=== PATIENT | male | born 1965 | race Caucasian/White ===

== ENCOUNTER 2021-12-02 21:40 | Emergency (ER) | payer BC, SELFPAY ==
[2021-12-02] VITALS (8 sets, daily range): BP systolic 207–220; BP diastolic 135–140; PULSE 88–125; RESP 20–36; TEMP 36.3–38; O2SAT 98–100
--- NOTE | ~2021-12-02 | CT_ITS ---
EXAMINATION: CTA brain carotid DATE: 12/02/2021 22:48 INDICATION: Syncope. TECHNIQUE: Computed tomographic angiography (CTA) of the head was performed without and with 100 mL O mnipaque-350 intravenous contrast. CTA of the neck was performed with intravenous contrast. Automated exposure control and iterative reconstruction technique were employed. The dose-length product was 1 873.95 mGy-cm. Maximum intensity projection and volume rendered 3D-reconstructions were created by jerri wilde technologist on a separate workstation. COMPARISON: None. FINDINGS: HEAD CTA: There is a large distribution of acute subarachnoid hemorrhage involving the suprasellar ci hills, anterior interhemispheric cistern, sylvian fissures, and perimesencephalic cisterns. There is acute intraparenchymal hematoma involving the right frontal lobe. There is acute intraventricular hem orrhage involving the lateral and third ventricles and fourth ventricle. The ventricles are enlarged. There is no acute ischemic infarct or abnormal mass lesion. There is 2 mm leftward midline shift at the foramen of Monro. There is mucosal thickening in the maxillary sinuses. The mastoid air cells are normal. The orbits are normal. There are fracture deformity is of the nasal bones. Right vertebral a rtery is dominant. There is no significant stenosis of basilar artery or the posterior cerebral arter ies. The posterior communicating arteries are normal. There is no significant stenosis of the intracr anial internal carotid arteries or anterior or middle cerebral arteries. There is a 13 x 9 mm aneurys m of anterior communicating artery. NECK CTA: There is mild atelectasis in the lungs. The endotracheal tube tip is above the sujey. Ther e is no significant stenosis of the vertebral arteries. There is mild plaque in proximal left interna l carotid artery. There is 0% stenosis of the proximal right internal carotid artery relative to norm al distal artery lumen diameter (NASCET criteria). There is 0% stenosis of the proximal left internal carotid artery relative to normal distal artery lumen diameter. There is severe cervical spondylosis . There is mild chronic height loss of T1, T3, and T4 vertebral bodies. IMPRESSION: 1. 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 I called this result to Dr. Diaz. 2. 0% stenosis of the proximal internal carotid arteries relative to normal distal artery lumen diame ters (NASCET criteria). Reviewed, dictated and finalized at location A. IMPRESSION: 1. 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 I called this result to Dr. Diaz. 2. 0% stenosis of the proximal internal carotid arteries relative to normal dis charlene artery lumen diameters (NASCET criteria).
--- NOTE | ~2021-12-02 | XR_ITS ---
EXAMINATION: XR abdomen NG/feed tube insert DATE: 12/02/2021 22:29 INDICATION: Nasogastric tube placement. TECHNIQUE: A supine view of the abdomen was obtained. COMPARISON: None. FINDINGS: There are no dilated loops of bowel. The nasogastric tube tip is in the stomach. IMPRESSION: 1. Nasogastric tube tip in the stomach. Reviewed, dictated and finalized at location A.
--- NOTE | ~2021-12-02 | XR_ITS ---
EXAMINATION: XR chest ET placement DATE: 12/02/2021 22:29 INDICATION: Intubation. TECHNIQUE: A single frontal view of the chest was obtained. COMPARISON: None. FINDINGS: The lung volumes are small. There are airspace opacities in the lower lung zones. A calcifi ed right lung nodule is consistent with old granulomatous disease. No pleural effusion or pneumothora x. The heart size is normal. The endotracheal tube tip is 4.2 cm above the sujey. The nasogastric tu be tip is beyond the inferior margin of the radiograph, but at least to the stomach. IMPRESSION: 1. Small lung volumes with airspace opacities in the lower lung zones, consistent with atelectasis ve rsus pneumonia. Reviewed, dictated and finalized at location A. IMPRESSION: 1. Small lung volumes with airspace opacities in the lower lung zones, consiste nt with atelectasis versus pneumonia.
--- NOTE | ~2021-12-02 | CT_ITS ---
EXAMINATION: CT facial & cervical spine wo DATE: 12/02/2021 22:42 INDICATION: Unresponsive. TECHNIQUE: Computed tomography (CT) of the maxillofacial region and cervical spine was performed with out intravenous contrast. Automated exposure control and iterative reconstruction technique were empl oyed. The dose-length product was 572.07 mGy-cm. COMPARISON: None FINDINGS: MAXILLOFACIAL CT: There is rightward deviation of the nasal septum. There are fracture deformities involving the nasal bones, likely old. There is mild mucosal thickening in the maxillary sinuses. There are multiple brok en teeth. There are periapical lucencies around the roots of a broken left maxillary molar. The orbit s are normal. The mastoid air cells are normal. CERVICAL SPINE CT: There is 4 degrees dextrocurvature of cervical spine. There is mild chronic height loss of T1 and T3 vertebral bodies. There is moderately decreased disc height at C4-C5 and C5-C6. The following disc le vels are specifically discussed: C2-C3: There is mild bilateral uncovertebral joint osteoarthritis. There is mild right and severe lef t facet joint osteoarthritis. There is mild left neural foraminal stenosis. There is no central canal stenosis. C3-C4: There is mild bilateral uncovertebral joint osteoarthritis. There is severe bilateral facet trisha int osteoarthritis. There is moderate bilateral neural foraminal stenosis. There is mild central inga l stenosis. C4-C5: There is severe bilateral uncovertebral joint osteoarthritis. There is mild bilateral facet trisha int osteoarthritis. There is moderate right and mild left neural foraminal stenosis. There is mild ce ntral canal stenosis. C5-C6: There is moderate bilateral uncovertebral joint hypertrophy. There is mild bilateral facet ashley nt osteoarthritis. There is mild bilateral neural foraminal stenosis. There is mild central canal isabella nosis. C6-C7: There is no uncovertebral joint osteoarthritis. There is mild bilateral facet joint osteoarthr itis. There is no neural foraminal stenosis. There is mild central canal stenosis. C7-T1: There is no uncovertebral joint osteoarthritis. There is severe bilateral facet joint osteoart hritis. There is mild right neural foraminal stenosis. There is no central canal stenosis. IMPRESSION: 1. Moderate cervical spondylosis. 2. Fracture deformities of the nasal bones, likely chronic. Reviewed, dictated and finalized at location A.
--- NOTE | 2021-12-02 21:53 | ECG_ITS ---
Measurements Intervals [place] Rate: 118 P: 15 [place]: 160 QRS: 36 QRSD: 94 T: 44 QT: 398 QTc: 558 Interpretive Statements SINUS TACHYCARDIA POSSIBLE LEFT ATRIAL ENLARGEMENT [-0.1mV P WAVE IN V1/V2] NONSPECIFIC T-WAVE ABNORMALITY ABNORMAL RHYTHM ECG NO PREVIOUS ECG AVAILABLE FOR COMPARISON Electronically Signed On 12-04-2021 19:44:40 CDT by Cassandra Nicole M.D.
--- NOTE | 2021-12-02 22:05 | PC.NURSE ---
Addendum entered by Kelsey Euceda RN 12/03/21 00:25: ET tube 7 Addendum entered by Kelsey Euceda RN 12/02/21 22:24: RT advancing ET tube to 25 at the lip. Addendum entered by Kelsey Euceda RN 12/02/21 22:19: settings 20 rate 500 tidal volume peep 5 Original Note: intubation 100 jana 20 etomidate 2206 etomindate (RAC) 2207 jana (RAC) pt is 100% RA 2206 initiate intubation 2206 inflate at 2208 23 at lip location confirmed with visualization and good color change
[2021-12-02 22:11] LABS: Basophils Absolute Auto 0.1 K/mm3 (0.0-0.1); Basophils Percent Auto 0.2 % (0.2-1.2); Hematocrit 47.6 % (42.0-52.0); Hemoglobin 16.1 g/dL (14.0-18.0); Immature Granulocyte Absolute 0.15 K/mm3 (0.00-0.031); Immature Granulocyte Percent A 0.7 % (0-0.5); Immature Platelet Fraction Pct 3.3 % (0.9-11.2); Lymphocytes Absolute Auto 1.37 K/mm3 (0.9-3.2); Lymphocytes Percent Auto 6.3 % (18.3-44.2); Mean Corpuscular HGB Conc 33.8 g/dl (32-36); Mean Corpuscular Hemoglobin 29.2 pg (26-34); Mean Corpuscular Volume 86.2 fl (80-100); Mean Platelet Volume 9.9 fl (7.4-10.4); Monocytes Percent Auto 4.7 % (2.6-8.5); Neutrophils Absolute Auto 19.3 K/mm3 (1.3-6.7); Neutrophils Percent Auto 88.1 % (45.5-73.1); Platelet Count Result 417 k/mm3 (150-375); Red Blood Count 5.52 M/mm3 (4.6-6.20); Red Cell Distribution Width 12.9 % (11.5-14.5); White Blood Count 21.9 K/mm3 (4.5-10.0)
[2021-12-02] MEDS: HYDROmorphone HCL INJ (*CRX) 1 MG/ML SYR IV PUSH (22:13)
[2021-12-02] MEDS: LABETALOL HCL INJ 100 MG/20 ML VIAL 20 MG IV PUSH (22:19)
[2021-12-02 22:20] LABS: INR 1.1; Prothrombin Time 13.8 Seconds (11.1-14.7)
[2021-12-02 22:21] LABS: Partial Thromboplastin Time 21.4 SECONDS (22.3-36.8)
[2021-12-02 22:24] LABS: Lactic Acid Reflex 9.1 mmol/L (0.7-2.0)
[2021-12-02 22:25] LABS: Albumin Level 5.4 g/dL (3.5-5.1); Alkaline Phosphatase 96 U/L (38-126); Anion Gap 26 mmol/L (8-16); Bilirubin,Total 0.6 mg/dL (0.2-1.3); Blood Urea Nitrogen 14 mg/dL (9-20); Calcium 9.3 mg/dL (8.4-10.2); Carbon Dioxide 15 mmol/L (22-30); Chloride 101 mmol/L (98-107); Estimated CRCL calculation 78 ml/min; Estimated Glomerular Filt Rate > 60; Glucose 187 mg/dL (65-110); Potassium 3.4 mmol/L (3.4-5.0); Sodium 142 mmol/L (137-145)
--- NOTE | 2021-12-02 22:25 | ED.AMS ---
HPI - Altered Mental Status General Chief Complaint: Altered Mental Status Stated Complaint: AMS, FALL Time Seen by Provider: 12/02/21 21:44 History of Present Illness HPI narrative: This is a 48-year-old male brought in by EMS after being found unresponsive in his home. He was last seen normal by his partner at 1:00 p.m. today. patient's partner got home at approximately 9 and found the patient face down in the bathroom. There was feces and vomit in the room. Patient was bleeding from his nose. Patient was unresponsive at that time. EMS was calling is brought to the hospital. Review of Systems Review of Systems: ROS unobtainable: Yes unobtainable due to medical condition [facility] Social History Social History (Updated 12/02/21 @ 22:26 by Levy Diaz MD) Social History: positive for alcohol use Exam Narrative: APPEARANCE: patient is lying supine in bed. There is blood on the right side of his face. responsive to pain Head atraumatic. EYES: pupils are 2 mm and not responsive to light. right eye is deviated down and out. NOSE: Significant blood in the nares. No crepitus over the bridge of the nose NECK: Supple, Trachea midline, C-collar in place RESPIRATORY: tachypneic. Saturating 100% on room air lung sounds are clear CARDIOVASCULAR: S1S2 appreciated tachycardic, pulses are +2 in all 4 extremities ABDOMINAL: Soft, nontender, nondistended, MUSCULOSKELETAl: No obvious deformities NEURO: responsive to pain on the right upper and lower extremity. Unresponsive to pain and flaccid on the left arm and left leg SKIN:: : Diaphoretic PSYCHIATRIC: unresponsive GCS: [id number] Course Vital Signs Vital signs: Vital Signs Pulse Rate 125 H 12/02/21 21:40 Respiratory Rate 36 H 12/02/21 21:40 Blood Pressure 220/135 H 12/02/21 21:40 Pulse Oximetry 98 12/02/21 21:40 Oxygen Delivery Room Air 12/02/21 21:40 Temperature 100.4 F H 12/02/21 23:00 Pulse Rate 99 12/02/21 23:11 Respiratory Rate 22 H 12/02/21 23:11 Blood Pressure 207/140 H 12/02/21 23:00 Pulse Oximetry 100 12/02/21 23:11 Oxygen Delivery Mechanical Ventilation 12/02/21 23:11 Fraction of Inspired Oxygen 70 12/02/21 23:11 Procedures ABG Interpretation ABG Interpretation 1: ABG Results: 7.35/38.8/281.5/21.2 On vent settings 20/500/100/5 Oxygen is elevated. Will titrate oxygen levels to pulse ox >92 Intubation Intubation #1: Intubation Date: 12/02/21 Time out performed: Yes sedative: Etomidate paralytic: Rocuronium Laryngoscope: other ( GlideScope) Tube Size (cm): 7.5 Method of Intubation: orotracheal Number of Attempts: 1 Tube Secured Depth (cm): 23 Tube Placement Confirmation: visualized tube passing through cords, equal breath sounds bilaterally, no breath sounds over epigastrium and confirmation by capnometry Patient Tolerated Procedure: well Intubation Complications: none Additional Comments: position was confirmed by x-ray. X-ray showed that the endotracheal tube tip was 5 cm above the sujey. The tube will be advanced 2cm to 25 cm at the lip. Pulse Oximetry Interpretation Digit-Finger: Pulse Oximetry Interpretation Time: 23:58 Pulse Oximetry: 98 Actions Taken: intubated Other Procedure Procedure 1: Other Procedure: Orogastric tube placed and can confirmed with x-ray. Tube was placed to intermittent suction MDM - Altered Mental Status MDM Narrative Medical decision making narrative: this is a 56-year-old male presenting after being found unresponsive. Airway was assessed and his pain and at this time. Patient is breathing 30 times per minute. He has +2 pulses in all extremities. Patient has a GCS of 7 E 1 V1 M5 and is only moving the right side of his body to pain. The left side of his body is flaccid. The patient was exposed and there is blood on his face from his nose. No other f
[2021-12-02 22:27] LABS: Alanine Aminotransferase 74 U/L (6-50); Aspartate Amino Transferase 49 U/L (17-59)
[2021-12-02 22:30] LABS: Add Urine Microscopic? YES; Bacteria Urine Trace /hpf; Bilirubin Urine Negative (Negative); Blood Urine 1+ (Negative); Color Urine Yellow (Yellow); Glucose Urine UA 2+ mg/dL (Negative); Ketones Urine 1+ mg/dL (Negative); Leukocyte Esterase Ur Negative LEU/UL (Negative); Mucus Urine Rare /lpf; Nitrate Urine Negative (Negative); Protein Urine 3+ mg/dL (Negative); Specific Grav Ur 1.024 (1.001-1.035); Squamous Epithelial Cell Urine Rare /hpf (Few); Urobilinogen Urine Negative mg/dL (<2.0); WBC Urine 16-20 /hpf
[2021-12-02 22:30] LABS: Troponin I 0.031 ng/mL (0.000-0.034)
[2021-12-02 22:33] LABS: Appearance Urine Clear (Clear)
[2021-12-02 22:44] LABS: D Dimer 4.81 ug/mL (<0.48)
[2021-12-02 22:47] LABS: Creatine Kinase 247 U/L (55-170)
[2021-12-02] MEDS: FENTANYL 2,500MCG/NS250ML(*CRX 2,500 MCG/250 ML BAG 10 MCG IV CONT (22:55)
[2021-12-02 23:03] LABS: Alveolar/Arterial O2 Gradient 392.7 mmHg; Base Excess ABG -3.9 mEq/l (+/-2.0); Fractional Inspired Oxygen 100 %; HCO3 ABG 21.2 mEq/l (22.0-26.0); Oxygen Content ABG 21.3 %vol (16.0-22.0); Oxygen Saturation ABG 99.6 % (95.0-100.0); Oxyhemoglobin 98.1 % THb (90.0-100.0); PCO2 ABG 38.8 mmHg (35.0-45.0); PO2 ABG 281.5 mmHg (80.0-100.0); PO2 FiO2 Ratio Arterial Blood 2.82 %; pH ABG 7.355 (7.350-7.450)
[2021-12-02 23:06] LABS: Arterial Blood Gas PEEP 5 cmH2O; Arterial Blood Gas Tidal Volume 500 ml; Arterial Blood Gas Vent Mode CMV; Arterial Blood Gas Ventilator rate 20 /MIN; Device VENTILATOR; Modified Allen's Test Pass; Site Drawn LEFT RADIAL
[2021-12-02] MEDS: RAPID SEQUENCE INTUBATION KIT 1 EACH (23:06)
--- NOTE | 2021-12-02 23:19 | PC.NURSE ---
This RN removed c-collar. CT scan of neck negative.
[2021-12-02] MEDS: MIDAZOLAM HCL (*CRX) 2 MG/2 ML VIAL IV PUSH (23:30)
[2021-12-02] MEDS: niCARdipine 20 MG/200 ML 20 MG/200 ML BAG 50 MG IV CONT (23:40)
[2021-12-03 00:06] VITALS: O2SAT 98
[2021-12-03 00:27] VITALS: PULSE 100; RESP 20
[2021-12-03 01:05] LABS: Reflex Lactic Acid Yes or No Add Lactic
== END 2021-12-03 00:02 | disposition short-term general hospital (02) ==
PROVIDERS: Emergency Provider Emergency Medicine
DX: R41.82 Altered mental status, unspecified (principal); I60.9 Nontraumatic subarachnoid hemorrhage, unspecified; I72.8 Aneurysm of other specified arteries; I61.9 Nontraumatic intracerebral hemorrhage, unspecified; G91.9 Hydrocephalus, unspecified; D72.829 Elevated white blood cell count, unspecified; E87.20 Acidosis, unspecified
CPT/HCPCS: 31500; 36415; 36600; 70486; 70496; 70498; 72125; 80053; 81001; 82550; 82805; 83605; 84484; 85025; 85055; 85380; 85610; 85730; 87086; 93005; 96365; 96366; 96367; 96375; 99291; J1170; J2250; J3010; L0140; Q9967